=== PATIENT | female | born 1970 | race Caucasian/White ===

== ENCOUNTER 2021-09-12 01:30 | Emergency (ER) | payer MEDICARE ==
[~2021-09-12] VITALS: Ht 157.5 cm; Wt 63.6 kg
[2021-09-12 01:32] VITALS: BP 178/98
== END 2021-09-12 22:05 | disposition home or self-care (01) ==
LOC: M ED 01:30
DX: I10 Essential (primary) hypertension (principal); R20.9 Unspecified disturbances of skin sensation; F17.210 Nicotine dependence, cigarettes, uncomplicated

== ENCOUNTER → 2021-10-03 | Outpatient (CLI) | payer MEDICARE ==
[2021-10-03 14:15] LABS: FOLATE 3.8 NG/ML; RHEUMATOID FACTOR QUANT 12.1 IU/ML (<15.0); TOTAL PROTEIN 7.7 GM/DL (6.4-8.2); VITAMIN B12 LEVEL 377 PG/ML
[2021-10-03 14:42] LABS: HEMOGLOBIN A1c 4.8 %
[2021-10-07 14:32] LABS: ALBUMIN 4.44 GM/DL (3.29-5.55); ALBUMIN % 57.6 % (55.8-66.1); ALPHA-1-GLOBULIN % 4.2 % (2.9-4.9); ALPHA-1-GLOBULINS 0.32 GM/DL (0.17-0.41); ALPHA-2-GLOBULINS 0.79 GM/DL (0.42-0.99); ALPHA-2-GLOBULINS % 10.3 % (7.1-11.8); BETA-1-GLOBULINS 0.44 GM/DL (0.28-0.60); BETA-1-GLOBULINS % 5.7 % (4.7-7.2); BETA-2-GLOBULINS 0.41 GM/DL (0.19-0.55); BETA-2-GLOBULINS % 5.3 % (3.2-6.5); GAMMA GLOBULIN % 16.9 % (11.1-18.8)
[2021-10-10 10:01] LABS: DRVV SCREEN 46.2 SEC
[2021-10-10 10:02] LABS: PTT LUPUS TYPE ANTICOAG SCREEN 1.2 (0-1.2)
[2021-10-10 10:11] LABS: DRVV CONFIRM 36.3 SEC
[2021-10-10 10:13] LABS: NORMALIZED RATIO 1.2 (0.00-1.20)
[2021-10-12 23:07] LABS: HEXAGONAL PHASE PHOSPHOLIPID 4 sec (0-11)
== END ==
LOC: M PLALAB 11:35
PROVIDERS: ATTEND Psychiatry & Neurology Neurology
DX: G62.9 Polyneuropathy, unspecified (principal); G37.9 Demyelinating disease of central nervous system, unspecified; Z79.899 Other long term (current) drug therapy